=== PATIENT | male | born 1940 | race Caucasian/White ===

== ENCOUNTER → 2019-07-27 09:43 | Day surgery (SDC) | payer MEDICARE ==
[~2019-07-27 09:43] MED LIST: Buffered Lidocaine 1% SYRIN* 1 ML/SYRINGE INTRADERM ONE; Dexamethasone IV* 4 MG/ML 1 ML (4 MG) IV SLOW PU ONE; Famotidine IV* 10 MG/ML 2 ML (20 mg) IV ONE; Lactated Ringers 1000 ML Bag* 1,000 ML IV SCH; Levalbuterol 0.63MG/3ML NEB* UNIT OF USE INH ONE
== END | disposition home or self-care (01) ==
LOC: OR 09:43
PROVIDERS: ATTEND Internal Medicine
DX: C34.90 Malignant neoplasm of unspecified part of unspecified bronchus or lung (principal); J44.9 Chronic obstructive pulmonary disease, unspecified; J93.83 Other pneumothorax; G47.33 Obstructive sleep apnea (adult) (pediatric); Z79.01 Long term (current) use of anticoagulants; I25.10 Atherosclerotic heart disease of native coronary artery without angina pectoris; I48.0 Paroxysmal atrial fibrillation; I71.2 Thoracic aortic aneurysm, without rupture
CPT/HCPCS: 71046

== ENCOUNTER 2019-08-31 11:27 | Day surgery (SDC) | payer MEDICARE ==
[~2019-08-31 11:27] MED LIST changes: -Dexamethasone IV* 4 MG/ML 1 ML (4 MG) IV SLOW PU ONE; -Famotidine IV* 10 MG/ML 2 ML (20 mg) IV ONE; -Levalbuterol 0.63MG/3ML NEB* UNIT OF USE INH ONE; +Sodium Citrate/Citric Acid* 15 ML UDC PO ONE
[2019-08-31] MEDS ORDERED: Sodium Citrate/Citric Acid* 15 ML UDC ONE ×2 (11:57→12:11)
[2019-08-31] MEDS ORDERED: Levalbuterol 0.63MG/3ML NEB* UNIT OF USE INH ONE ×2 (12:37→14:41)
[2019-08-31] MEDS ORDERED: Benzocaine/Butamben/Tetracain (CETACAINE - SINGLE USE) 5 gm TOPICAL ONE (13:07)
[2019-08-31] MEDS ORDERED: Propofol* 10 MG/ML 20 ML BTL ONE (13:19)
[2019-08-31] MEDS ORDERED: Lidocaine 2% PF * 5 ML VIAL ONE (13:20)
[2019-08-31] MEDS ORDERED: Rocuronium* 10 MG/ML VIAL ONE (13:20)
[2019-08-31] MEDS ORDERED: fentaNYL* 50 MCG/ML 2 ML VIAL (100 MCG VIAL) ONE (13:21)
[2019-08-31] MEDS ORDERED: Sugammadex * 500 MG/5 ML VIAL IV PUSH ONE (14:33)
--- NOTE | 2019-08-31 14:49 | BRIEFOPN ---
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 Thick white mucus noted, airways are inflamed. Mucosal irregularity of medial segment and posterior segment of RLL. Station L4, L12, station 7, R4 were accessed without any metastatic disease Specimen(s)/Culture(s) Description: Cytology from FNA of above nodes Complications: Hypotension for brief period towards end of procedure, procedure was terminated
[2019-08-31 14:54] VITALS: BP 127/69
[2019-08-31] MEDS ORDERED: Naloxone* 0.4 MG/ML 1 ML VIAL IV PRN (15:05)
--- NOTE | 2019-08-31 21:44 | PRO ---
BRONCHOSCOPY REPORT: DATE OF PROCEDURE: 08/31/19 PROCEDURE PERFORMED: Bronchoscopy with endobronchial ultrasound-guided fine needle aspiration of mediastinal hilar nodes. PREPROCEDURAL DIAGNOSIS: Lung cancer for lymph node staging. ANESTHESIA: General anesthesia. ANESTHESIOLOGIST: Dr. Stanley. DESCRIPTION OF PROCEDURE: Informed consent was obtained from the patient prior to the procedure after all the risks and benefits were thoroughly explained. The patient was recently diagnosed with squamous cell cancer of right lung after CT- guided biopsy. The patient was intubated with size 8.5 endotracheal tube. Flexible Olympus bronchoscope was inserted through ET tube for airway inspection. The patient was noted to have thick secretions and were suctioned out. No endobronchial lesions noted on the left side. The patient's bronchoscope was then advanced into the right bronchial tree. The patient was noted to have mild narrowing and irregularity of the mucosa in the right lower lobe bronchus in the medial segment and posterior basal segment. Minimal secretions were noted and were suctioned out. Bronchoscope was then withdrawn and EBUS bronchoscope was inserted. Station L4 was minimally enlarged and was accessed with 1 pass. Rapid onsite evaluation revealed lymphatic tissue. No malignant cells. L12 was also minimally enlarged and was accessed with 1 pass. Rapid onsite evaluation revealed lymphatic tissue with no malignant cells. Station 5 was then accessed also with 2 passes. Rapid onsite evaluation revealed lymphatic tissue with no malignant cells. R4 was then accessed with 3 passes. Rapid onsite evaluation revealed lymphatic tissue on the third pass. The patient's blood pressure started to drop at that time. Bronchoscope was then withdrawn. No further sampling on the right side could be performed due to hypotension. The patient was extubated and seen in Recovery in optimal condition. Specimen was sent to the lab in formalin for cell block. [id number] #: [id number] [facility]
== END 2019-08-31 15:45 | disposition home or self-care (01) ==
LOC: OR 11:27
PROVIDERS: ATTEND Internal Medicine
DX: C34.11 Malignant neoplasm of upper lobe, right bronchus or lung (principal); Z87.891 Personal history of nicotine dependence; I25.10 Atherosclerotic heart disease of native coronary artery without angina pectoris; I10 Essential (primary) hypertension; J44.9 Chronic obstructive pulmonary disease, unspecified; G47.33 Obstructive sleep apnea (adult) (pediatric); E78.5 Hyperlipidemia, unspecified; Z95.828 Presence of other vascular implants and grafts; Z79.01 Long term (current) use of anticoagulants
CPT/HCPCS: 88172; 88173; 88177; 88305; A9270-GY; J2704; J3010